=== PATIENT | female | born 1980 | race Caucasian/White ===

== ENCOUNTER 2023-11-11 06:19 | Emergency (ER) | payer OTHER, SELFPAY ==
[2023-11-11 06:25] VITALS: BP 130/66; PULSE 80; RESP 15; TEMP 36.9; O2SAT 99
[2023-11-11 06:32] VITALS: O2SAT 100
[2023-11-11 06:45] VITALS: BP 125/71; PULSE 85; RESP 16; O2SAT 98
[2023-11-11 07:04] LABS: Strep Group A RT-PCR NOT DETECTED (Negative)
[2023-11-11 07:17] LABS: Influenza A QL RT-PCR Negative (Negative); Influenza B QL RT-PCR Negative (Negative); SARS-CoV-2 RNA PCR Negative (Negative)
--- NOTE | 2023-11-11 07:46 | ED.GENADULT ---
HPI - General Adult General Chief complaint: Upper Respiratory Infection Stated complaint: sore throat, fever, white patches on throat Time Seen by Provider: 11/11/23 07:01 History of Present Illness HPI narrative: Patient is a 43-year-old female who presents ER with sore throat. Occurred over last 24 hours. She has a white patch to her right tonsil. No fevers. No runny nose/ cough. She does report that she had a new sexual partner over the weekend and she would like to be checked for gonorrhea/chlamydia of the throat. She has no vaginal discharge. No dysuria or pelvic discomfort. Patient has mild body aches. Related Data Allergies Allergy/AdvReac Type Severity Reaction Status Date / Time No Known Allergies Allergy Verified 11/11/23 06:28 Review of Systems Constitutional: Constitutional: Reports no additional constitutional complaints ENT: Denies nasal congestion and Reports sore throat Cardiovascular: Cardiovascular: Reports no additional cardiovascular complaints Respiratory: Respiratory: Reports no additional respiratory complaints PMFSH Past Medical History Medical History (Updated 11/11/23 @ 09:43 by Corey Whelan MD) Healthy female adult Exam Narrative: GENERAL: Well-appearing, well-nourished, and in no acute distress. HEAD: Normocephalic, atraumatic. ENT: Mucous membranes moist. mild tonsillar erythema bilaterally with all small amount of white patches on the right tonsil. No significant hypertrophy of the tonsil. Uvula midline nonedematous. No tongue swelling. NECK: Mild anterior cervical chain lymphadenopathy. CHEST: Clear to auscultation. No respiratory distress. HEART: Regular rate and rhythm. Normal peripheral pulses. EXTREMITIES: Normal range of motion. No edema. NEURO: Alert and oriented x3. PSYCH: Normal mood and affect. Course Course Emergency Course: Infectious swabs all negative. Discharge home. Vital Signs Vital signs: Vital Signs Temperature 98.5 F 11/11/23 06:25 Pulse Rate 80 11/11/23 06:25 Respiratory Rate 15 11/11/23 06:25 Blood Pressure 130/66 11/11/23 06:25 Pulse Oximetry 99 11/11/23 06:25 Oxygen Delivery Room Air 11/11/23 06:25 Temperature 98.5 F 11/11/23 06:25 Pulse Rate 85 11/11/23 06:45 Respiratory Rate 16 11/11/23 06:45 Blood Pressure 125/71 11/11/23 06:45 Pulse Oximetry 98 11/11/23 06:45 Oxygen Delivery Room Air 11/11/23 06:32 Medical Decision Making Vital Signs Vital Signs: Vital Signs Temperature 98.5 F 11/11/23 06:25 Pulse Rate 80 11/11/23 06:25 Respiratory Rate 15 11/11/23 06:25 Blood Pressure 130/66 11/11/23 06:25 Pulse Oximetry 99 11/11/23 06:25 Oxygen Delivery Room Air 11/11/23 06:25 Temperature 98.5 F 11/11/23 06:25 Pulse Rate 85 11/11/23 06:45 Respiratory Rate 16 11/11/23 06:45 Blood Pressure 125/71 11/11/23 06:45 Pulse Oximetry 98 11/11/23 06:45 Oxygen Delivery Room Air 11/11/23 06:32 Lab Data Labs: Lab Results 11/11/23 11/11/23 Range/Units 06:28 07:55 C. trachomatis (PCR) Not detected (NOT DETECTE) Influenza A (RT-PCR) Negative (Negative) Influenza B (RT-PCR) Negative (Negative) N. gonorrhoeae (PCR) Not detected (NOT DETECTE) SARS-CoV-2 RNA (RT-PCR) Negative (Negative) Group A Strep (PCR) Not detected (Negative) Discharge Plan Discharge Clinical Impression: Acute viral pharyngitis Patient Disposition: Home, Self-Care Condition: Stable Instructions: Pharyngitis (ED) Additional Instructions: As discussed you have a viral illness. Unfortunately there are no specific medications we can give you to make the illness end faster. Antibiotics do not work for viral illnesses. However, you can take Acetaminophen or Ibuprofen to help with fevers and pain. Stay well hydrated and rested. Return to the emergency department if your fevers and chills continue to worse after 5 days
[2023-11-11 09:39] LABS: Chlamydia trachomatis NOT DETECTED (NOT DETECTE); Neisseria gonorrhoeae PCR NOT DETECTED (NOT DETECTE)
== END 2023-11-11 10:09 | disposition home or self-care (01) ==
PROVIDERS: Emergency Medicine; Emergency Provider Emergency Medicine
DX: J02.8 Acute pharyngitis due to other specified organisms (principal); Z20.822 Contact with and (suspected) exposure to COVID-19; Z11.3 Encounter for screening for infections with a predominantly sexual mode of transmission
CPT/HCPCS: 87491; 87591; 87636; 87651; 99283